=== PATIENT | female | born 1970 | race Caucasian/White ===

== ENCOUNTER → 2017-03-21 | Outpatient (CLI) | payer OTHER ==
[~2017-03-21] MED LIST: ACET325 PO; Advair Hfa 230-12 GM; BUPR75; GABA300 PO; HYDPAM50 PO; HYDR1TAB94 PO; LAMO100 PO; LISI5 PO; MELO7.5 PO; Naltrexone HCl50 MG; Omeprazole20 M1 PO; PRAZ2 PO; RANI150 PO
[2017-03-21 17:53] LABS: Specimen Source URINE
[2017-03-22 12:36] LABS: Source Urine
== END ==
LOC: LAB SHORT 16:05
PROVIDERS: Nurse Practitioner Family
DX: R35.0 Frequency of micturition (principal); R39.11 Hesitancy of micturition; R82.99 Other abnormal findings in urine; R10.9 Unspecified abdominal pain
CPT/HCPCS: 87491; 87591

== ENCOUNTER 2017-03-24 07:27 | Day surgery (SDC) | payer OTHER ==
[2017-06-09] MEDS ORDERED: MELO7.5 PO (17:07)
[2017-06-09] MEDS ORDERED: LAMO100 PO (17:08)
[2017-06-09] MEDS ORDERED: LISI5 PO (17:09)
[2017-06-09] MEDS ORDERED: GABA300 PO (17:10)
[2017-06-09] MEDS ORDERED: PRAZ2 PO (17:11)
[2017-06-09] MEDS ORDERED: HYDPAM50 PO (17:12)
[2017-06-09] MEDS ORDERED: ACET325 PO (17:13)
[2017-06-09] MEDS ORDERED: Omeprazole20 M1 PO (17:14)
[2017-06-09] MEDS ORDERED: RANI150 PO (17:14)
[2017-06-12] MEDS ORDERED: Advair Hfa 230-12 GM (09:30)
[2017-10-08] MEDS ORDERED: Naltrexone HCl50 MG (12:36)
[2017-10-08] MEDS ORDERED: BUPR75 (12:36)
== END 2017-03-24 23:08 | disposition home or self-care (01) ==
LOC: MOI MAM 07:27
PROC: 0HBU3ZX Excision of Left Breast, Percutaneous Approach, Diagnostic (ICD-10-PCS; principal; 2017-03-24)
DX: N62 Hypertrophy of breast (principal)
CPT/HCPCS: 19083; 77065; 88305; A4648

== ENCOUNTER 2017-10-09 23:19 | Emergency (ER) | payer OTHER ==
[~2017-10-09] VITALS: Ht 172.7 cm; Wt 86.2 kg
[~2017-10-09 23:19] MED LIST changes: -HYDR1TAB94 PO
[2017-10-09 23:53] LABS: Source, Urine Clean Catch
[2017-10-09 23:58] LABS: Bilirubin, Urine Neg (Neg); Blood, Urine Neg (Neg); Glucose Qualitative, Urine Neg (Neg); Ketones, Urine Neg (Neg); Leukocyte Esterase, Urine 1+ (Neg); Nitrite, Urine Neg (Neg); Protein, Urine 1+ (Neg); Urobilinogen, Urine 1+ (Normal)
[2017-10-09 23:59] LABS: Color, Urine Yellow (P-Yellow)
[2017-10-10] LABS: Appearance, Urine Clear (Clear)
[2017-10-10 00:04] LABS: BASOPHILS ABSOLUTE AUTO 0.03 K/mm3 (0.00-0.23); BASOPHILS PERCENT AUTO 0 % (0-2); EOSINOPHILS ABSOLUTE AUTO 0.16 K/mm3 (0.00-0.68); EOSINOPHILS PERCENT AUTO 2 % (0-6); Hematocrit 37.6 % (33.0-51.0); Hemoglobin 12.8 g/dL (11.5-16.0); IMMATURE GRAN ABSOLUTE AUTO 0.03 K/mm3 (0.00-0.10); IMMATURE GRAN PERCENT AUTO 0 % (0-1); LYMPHOCYTES ABSOLUTE AUTO 2.94 K/mm3 (0.84-5.20); LYMPHOCYTES PERCENT AUTO 33 % (21-46); MONOCYTES ABSOLUTE AUTO 0.44 K/mm3 (0.16-1.47); MONOCYTES PERCENT AUTO 5 % (4-13); Mean Corpuscular HGB 33.8 pg (26.0-34.0); Mean Corpuscular Volume 99 fL (80-100); Mean Platelet Volume 11.6 fL (9.1-12.4); NEUTROPHILS ABSOLUTE AUTO 5.42 K/mm3 (1.96-9.15); NEUTROPHILS PERCENT AUTO 60 % (41-73); Platelet Count 205 K/mm3 (150-400); RDW Coefficient Variation 12.2 % (11.7-14.2); RDW Standard Deviation 44.6 fL (35.1-46.3); Red Blood Cell Count 3.79 M/mm3 (3.80-5.20); White Blood Cell Count 9.02 K/mm3 (4.00-11.30)
[2017-10-10 00:06] LABS: Bacteria Rare /hpf; Mucus Light (0-Heavy); Red Blood Cells, Urine Not Seen /hpf (0-2); Squamous Epithelial Cells Mod /hpf (Few); White Blood Cells, Urine Rare /hpf (0-5)
[2017-10-10 00:22] LABS: Alanine Aminotransfer (ALT/SGP 19 U/L (12-78); Albumin, Blood 3.9 g/dL (3.4-5.0); Albumin/Globulin Ratio 1.1 (0.8-1.8); Alk Phos 60 U/L (50-136); Anion Gap 8 mmol/L (6-16); Aspartate Aminotrans (AST/SGOT 15 U/L (12-37); Bilirubin, Total 0.3 mg/dL (0.1-1.0); Blood Urea Nitrogen 15 mg/dL (8-24); Bun/Creatinine Ratio 17.5 (12.0-20.0); CO2, Blood 26 mmol/L (21-32); Calcium, Blood 8.6 mg/dL (8.5-10.1); Chloride, Blood 109 mmol/L (98-108); Creatinine, Blood 0.86 mg/dL (0.40-1.00); Globulin, Blood 3.4 g/dL (2.2-4.0); Glomerular Filtration Rate >60 (60-); Glucose, Blood 100 mg/dL (70-99); Potassium, Blood 3.7 mmol/L (3.5-5.5); Sodium, Blood 143 mmol/L (136-145); Total Protein, Blood 7.3 g/dL (6.4-8.2)
== END 2017-10-10 02:03 | disposition home or self-care (01) ==
LOC: ER 23:19
PROVIDERS: Emergency Medicine
DX: G89.18 Other acute postprocedural pain (principal); R10.32 Left lower quadrant pain; F32.9 Major depressive disorder, single episode, unspecified; Z87.891 Personal history of nicotine dependence; Z88.2 Allergy status to sulfonamides; Z88.8 Allergy status to other drugs, medicaments and biological substances; Z79.899 Other long term (current) drug therapy
CPT/HCPCS: 36415; 74177; 80053; 81001; 85025; 96361; 96374; 99284-25; J3010; J7030; Q9967

== ENCOUNTER 2017-10-17 15:22 | Emergency (ER) | payer OTHER ==
[~2017-10-17] VITALS: Ht 172.7 cm; Wt 86.2 kg
[2017-10-17] MEDS ORDERED: HYDR1TAB94 PO (17:00)
== END 2017-10-17 17:05 | disposition home or self-care (01) ==
LOC: ER 15:22
DX: K43.2 Incisional hernia without obstruction or gangrene (principal); F32.9 Major depressive disorder, single episode, unspecified; Z88.2 Allergy status to sulfonamides; Z88.8 Allergy status to other drugs, medicaments and biological substances; Z79.899 Other long term (current) drug therapy
CPT/HCPCS: 99282

== ENCOUNTER 2018-07-14 07:36 | Day surgery (SDC) | payer OTHER ==
[~2018-07-14] VITALS: Ht 172.7 cm; Wt 96.9 kg
[~2018-07-14 07:36] MED LIST changes: -BUPR75; +BUPR75 PO; +HYDR1TAB94 PO; +LOSA25 PO; +MIMVEY LO 0.5-1 EACH PO; -Naltrexone HCl50 MG; +Naltrexone HCl50 MG PO
--- NOTE | 2018-07-14 08:27 | NUR ---
History, Chart, Medications and Allergies reviewed before start of procedure. Patient confirms NPO status and agrees with scheduled surgery. Lungs clear T/O to Auscultation. Patient reports completing Chlorhexadine shower X2 prior to admission to hospital. Patient States Post-Procedure ride home has been arranged. Pre-Op teaching done. Pt verbalizes understanding.
[2018-07-14] MEDS ORDERED: Flonase 0.05% N16 GM (08:28)
--- NOTE | 2018-07-14 08:56 | NUR ---
PATIENT HAS NO LOVED ONES PRESENT TODAY, WE WILL CALL HER FRIEND FOR A RIDE HOME WHEN SHE IS READY. NUMBER ON THE CHART.
--- NOTE | 2018-07-14 13:30 | NUR ---
1320- RIDE ARRIVED, Discharged via wheelchair to private car for ride home.
== END 2018-07-14 22:44 | disposition home or self-care (01) ==
LOC: ORSCMMR 07:36 → ORD 09:00 → ORSCMMR 22:44
PROVIDERS: Surgery
PROC: 0WUF0JZ Supplement Abdominal Wall with Synthetic Substitute, Open Approach (ICD-10-PCS; principal; 2018-07-14 09:00)
DX: K43.0 Incisional hernia with obstruction, without gangrene (principal); I10 Essential (primary) hypertension; E78.5 Hyperlipidemia, unspecified; Z79.899 Other long term (current) drug therapy; Z87.891 Personal history of nicotine dependence
CPT/HCPCS: A9270-GY; C1781; J0690; J1100; J1885; J2250; J2405; J2704; J2710; J3010; J7120

== ENCOUNTER → 2019-11-04 | Outpatient (CLI) | payer OTHER ==
[~2019-11-04] MED LIST changes: +Flonase 0.05% N16 GM
== END ==
LOC: LAB 16:12 → LAB SHORT 16:12
DX: N89.8 Other specified noninflammatory disorders of vagina (principal)
CPT/HCPCS: 87070; 87186; 87205

== ENCOUNTER → 2019-12-08 | Outpatient (CLI) | payer OTHER ==
[~2019-12-08] MED LIST changes: +FLUTICASONE-SA1 EAC9 INH; +Ventolin/Prove6.7 GM INH
== END ==
LOC: LAB SHORT 16:42 → LAB 16:42
DX: N89.8 Other specified noninflammatory disorders of vagina (principal)
CPT/HCPCS: 87070; 87205

== ENCOUNTER 2019-12-11 10:48 | Emergency (ER) | payer OTHER ==
[~2019-12-11] VITALS: Ht 172.7 cm; Wt 97.5 kg
[~2019-12-11 10:48] MED LIST changes: -FLUTICASONE-SA1 EAC9 INH; -Ventolin/Prove6.7 GM INH
[2019-12-11] MEDS ORDERED: FLUTICASONE-SA1 EAC9 INH (11:09)
[2019-12-11] MEDS ORDERED: Ventolin/Prove6.7 GM INH (11:10)
== END 2019-12-11 12:43 | disposition home or self-care (01) ==
LOC: ER 10:48
DX: M25.571 Pain in right ankle and joints of right foot (principal); M79.671 Pain in right foot; J45.909 Unspecified asthma, uncomplicated; I10 Essential (primary) hypertension; F32.9 Major depressive disorder, single episode, unspecified; Z79.899 Other long term (current) drug therapy; Z79.3 Long term (current) use of hormonal contraceptives; Z98.890 Other specified postprocedural states; Z92.89 Personal history of other medical treatment; Z99.0 Dependence on aspirator; Z88.2 Allergy status to sulfonamides; Z88.8 Allergy status to other drugs, medicaments and biological substances; Z87.891 Personal history of nicotine dependence; W22.8XXA Striking against or struck by other objects, initial encounter
CPT/HCPCS: 73610; 73630; 99283-25